=== PATIENT | male | born 1945 | race Caucasian/White ===

== ENCOUNTER 2018-12-08 07:55 | Day surgery (SDC) | payer MEDICARE, OTHER ==
[~2018-12-08] VITALS: Ht 165.1 cm; Wt 78.7 kg
[~2018-12-08 07:55] MED LIST: ASPI325; ATOR20; MECL12.5 PO
--- NOTE | 2018-12-08 09:08 | NUR ---
12/08/18 0908 Tata Michael PT RESTING WITH , LILLY AT BEDSIDE. PREOP TEACHING COMPLETED AT THIS TIME.
--- NOTE | 2018-12-08 09:56 | NUR ---
12/08/18 0956 Tata Michael GTTS USED WITH IRRIGATION
--- NOTE | 2018-12-08 10:35 | NUR ---
12/08/18 1035 Shayna Magana WHEN PT. WAS ASKED IF HE HAD ANY PAIN, PT. STATED "NOT REALLY." PT. DID VERBALIZE HE HAD SOME CRAMPING IN HIS ABD. BUT IS TOLERABLE. PT. STATED "JUST A LITTLE BIT."
== END 2018-12-08 10:38 | disposition home or self-care (01) ==
LOC: ORSCSDS 07:55
PROVIDERS: Internal Medicine Gastroenterology
PROC: 0DBN8ZX Excision of Sigmoid Colon, Via Natural or Artificial Opening Endoscopic, Diagnostic (ICD-10-PCS; principal; 2018-12-08 09:15)
PROC: 0DBL8ZX Excision of Transverse Colon, Via Natural or Artificial Opening Endoscopic, Diagnostic (ICD-10-PCS; principal; 2018-12-08 09:15)
PROC: 0DBH8ZX Excision of Cecum, Via Natural or Artificial Opening Endoscopic, Diagnostic (ICD-10-PCS; principal; 2018-12-08 09:15)
DX: Z12.11 Encounter for screening for malignant neoplasm of colon (principal); D12.3 Benign neoplasm of transverse colon; D12.0 Benign neoplasm of cecum; K63.5 Polyp of colon; K64.8 Other hemorrhoids; F17.210 Nicotine dependence, cigarettes, uncomplicated; Z79.82 Long term (current) use of aspirin; Z79.899 Other long term (current) drug therapy
CPT/HCPCS: 88305; J7120

== ENCOUNTER 2019-06-28 00:55 | Emergency (ER) | payer MEDICARE, OTHER ==
[~2019-06-28] VITALS: Ht 165.1 cm; Wt 77.1 kg
[2019-06-28] MEDS ORDERED: CEPH500 PO (01:08)
== END 2019-06-28 01:12 | disposition home or self-care (01) ==
LOC: ER 00:55
DX: S60.222A Contusion of left hand, initial encounter (principal); L03.114 Cellulitis of left upper limb; F17.200 Nicotine dependence, unspecified, uncomplicated; Z88.0 Allergy status to penicillin; Z79.899 Other long term (current) drug therapy; Z79.82 Long term (current) use of aspirin; X50.9XXA Other and unspecified overexertion or strenuous movements or postures, initial encounter
CPT/HCPCS: 99283